=== PATIENT | female | born 1950 | race Caucasian/White ===

== ENCOUNTER → 2016-08-05 | Outpatient (CLI) | payer BC ==
[~2016-08-05] MED LIST: ASPI81TA28 PO; BRIM0.2S OPR; BROM0.07 OPR; CHOL20005 PO; CLOP1TAB15 PO; DOXY100C2 PO; ESCI1TAB10 PO; FAMC1TAB PO; FENO54TA3 PO; HYDR-5688 PO; INSDGIPEN SC; INSUINJ4 SQ; ISOS30TA51 PO; KRIL1000 PO; LISI-725 PO; METF-384 PO; METO1TAB69 PO; MULT-506 PO; NTRGSL/4 UT; OXYC1TAB3 PO; PRED1SUS3 OPR; ROSU40TA PO
[2016-08-05 12:44] LABS: ESTIMATED AVERAGE GLUCOSE 154 mg/dl; HA1C FLAG Normal (Normal)
[2016-08-05 13:24] LABS: ALT/SGPT 43 U/L (12-78); AST/SGOT 35 U/L (15-37); BLOOD UREA NITROGEN 17 mg/dl (7-18); BUN/CREATININE RATIO 20.7 (10-20); CALCIUM 9.1 mg/dl (8.5-10.1); CARBON DIOXIDE 25 mmol/L (21-32); CHLORIDE 107 mmol/L (98-107); CHOLESTEROL 139 mg/dl (0-200); CREATININE 0.83 mg/dl (0.60-1.20); GLUCOSE 127 mg/dl (70-99); POTASSIUM 4.8 mmol/L (3.5-5.1); SODIUM 142 mmol/L (136-145); TRIGLYCERIDES 199 mg/dl (0-150); VERY LOW DENSITY LIPOPROT CALC 40 mg/dl
[2016-08-05 13:39] LABS: ALB/GLOB RATIO 1.2 (0.9-2); ALKALINE PHOSPHATASE 49 U/L (45-117); CHOLESTEROL/HDL RATIO 3.1; HDL CHOLESTEROL 45 mg/dl; LDL CHOLESTEROL CALCULATED 54 mg/dl
== END | disposition home or self-care (01) ==
LOC: C.LABPVFM 08:04
PROVIDERS: ATTEND Family Medicine
DX: F32.9 Major depressive disorder, single episode, unspecified (principal); E78.5 Hyperlipidemia, unspecified; E11.29 Type 2 diabetes mellitus with other diabetic kidney complication; E55.9 Vitamin D deficiency, unspecified

== ENCOUNTER → 2016-08-06 | Outpatient (CLI) | payer BC ==
[2016-08-06 17:49] LABS: RATIO 38.1 mcg/mg (0-30.0)
== END | disposition home or self-care (01) ==
LOC: C.LABPVFM 14:33
PROVIDERS: ATTEND Family Medicine
DX: F32.9 Major depressive disorder, single episode, unspecified (principal); E78.5 Hyperlipidemia, unspecified; E11.29 Type 2 diabetes mellitus with other diabetic kidney complication; E55.9 Vitamin D deficiency, unspecified

== ENCOUNTER 2016-09-05 09:07 | Emergency (ER) | payer BC ==
[~2016-09-05] VITALS: Ht 157.5 cm; Wt 90.9 kg
[~2016-09-05 09:07] MED LIST changes: -DOXY100C2 PO; -HYDR-5688 PO; -INSDGIPEN SC; -OXYC1TAB3 PO
[2016-09-05 09:21] VITALS: TEMP 36.9; Ht 157.5 cm; Wt 90.9 kg
--- NOTE | 2016-09-05 10:06 | DIAGNOSTIC IMAGING REPORT ---
LEFT WRIST MIN 3 VIEWS ROUTINE CLINICAL HISTORY: Left wrist pain TRAUMA COMPARISON: None DISCUSSION: Irregularity of the navicular on the AP film, likely represents a projectional artifact. No acute fractures or dislocations are visualized on conventional radiographic imaging. IMPRESSION: No acute fractures or dislocations are visualized Electronically signed by: Grant Lozano M.D. 09/05/2016 10:04 AM Dictated Date/Time: 09/05/2016 10:02 AM
[2016-09-05] MEDS ORDERED: HYDR-5688 PO (10:35)
[2016-09-05 11:12] VITALS: BP 140/87; PULSE 72; O2SAT 98
--- NOTE | 2016-09-06 07:20 | EMERGENCY ROOM VISIT NOTE ---
ED Visit Note First contact with patient: 09:32 CHIEF COMPLAINT: Left wrist injury History of present illness: This 66-year-old white female patient complains of moderate constant wrist pain today after a fall last night. She tripped and fell forward, landing on pavers. The pain is worse with any movement of the wrist. No laceration, no numbness or weakness. No other injury. The fall was not associated with dizziness or fainting. There were no palpitations, no chest pain, no difficulty breathing, no headache, no lightheadedness or weakness. Pain is 7/10. Right-hand dominant. Her accompanies her today. REVIEW OF SYSTEMS: GENERAL: No fever or chills, easy fatigue, loss of appetite, or significant weight change. NEUROLOGICAL: No headache, change in mental status, weakness, numbness, or dizziness. PMH: Supplemental sheet was reviewed and signed. Previous surgeries: egd, cataracts x 2 Medical history: Diabetes, hypertension, elevated cholesterol, heart disease, previous [place] Current medications: Reviewed and filed in patient's chart Allergies: Penicillin Family history: Noncontributory. SOCIAL HISTORY: Patient lives at home. . No tobacco use, no EtOH use. PHYSICAL EXAM: Vital Signs: Afebrile. Reviewed and filed in patient's chart. General: Well-developed, well-nourished, middle-aged white female, in no acute distress. Obvious discomfort. She is sitting on a bed. MENTAL STATUS: Alert and oriented. Skin: Warm and dry with good turgor. No rashes or lesions. No ecchymosis or erythema. The patient is not diaphoretic. No abrasions. Moderate edema present at the wrist. Musculoskeletal: There is tenderness over the distal radius and anatomic snuffbox with moderate swelling. Range of motion is limited secondary to pain. No obvious deformity. No pain with palpation over the metacarpal heads or digits. There is intact motion of the digits, including opposition and circumduction of the thumb. This does generate pain at the base of the thumb. No pain with palpation over her forearm , radial head, or elbow. Neurologic: The hand is warm and well perfused and the fingers have normal sensation. Median, radial, and ulnar nerve functions are clearly intact. EMERGENCY DEPARTMENT COURSE: Radiographic images obtained today of the left wrist did not show any fracture as read by radiology. There is a questionable defect in the scaphoid by my interpretation. DIAGNOSIS: Left wrist sprain DISCHARGE INSTRUCTIONS & TREATMENT: The patient was educated regarding today's findings. Conservative care measures were discussed. She was placed in a Ortho- Glass thumb spica wrist splint. Wear the wrist splint at all times until seen by Dr. Pinedo. She will call on Wednesday for follow-up. Possibility of additional imaging was discussed with her. Ice and elevate the wrist intermittently to reduce pain and swelling. Ibuprofen, 600mg and Tylenol 1 g every 6 hours if needed for the pain. She was also given a prescription for Huntington 5 mg to be used for more severe pain. Driving precautions were given. Gentle finger motion daily. She was reassured that I do not suspect tendon injury at this time. Problem List Medical Problems: (1) Diabetes Status: Chronic Current/Historical Medications Scheduled Aspirin (Aspirin Ec), 81 MG PO QAM Cholecalciferol (Vitamin D3), 1 TAB PO QAM Clopidogrel (Plavix), 75 MG PO QAM Escitalopram Oxalate (Lexapro), 20 MG PO QAM Fenofibrate (Lofibra), 1 TAB PO QAM Insulin Glargine (Lantus Solostar Pen), 30 UNITS SQ HS Isosorbide Dinitrate (Isordil), 30 MG PO QAM Krill Oil (Krill Oil), 1 CAP PO QAM Lisinopril (Zestril), 20 MG PO QAM Metformin Hcl (Glucophage), 1,000 MG PO BID Metoprolol Succ (Toprol Xl) (Toprol-Xl ), 100 MG PO QAM Multivitamin (Multivitamin), 1 TAB PO QAM Rosuvastatin Calcium (Crestor), 40 MG PO QPM Scheduled PRN Famciclovir (Famciclovir), 1 TAB PO DIRECTED PRN for COLD SOARS Hydrocodone/Acetaminophen 5MG/325MG (Huntington 5MG/325MG), 1-2 TABLET PO Q6H PRN for Pain Nitroglycerin (Nitrostat), 0.4 MG UT PRN PRN for Chest Pain Allergies Coded Allergies: Penicillins (Verified Allergy, Severe, TONGUE SWELLING AND FELT LIKE THROAT WAS CLOSING, 09/05/16) Vital Signs Date Time Temp Pulse Resp B/P Pulse Ox O2 Delivery O2 Flow Rate FiO2 09/05/16 11:12 72 17 140/87 98 09/05/16 09:21 36.9 64 17 163/81 97 Room Air Departure Information Impression Primary Impression: Left wrist sprain Dispostion Home / Self-Care Condition GOOD Prescriptions Hydrocodone/Acetaminophen 5MG/325MG (Huntington 5MG/325MG) Tab 1-2 TABLET PO Q6H Y for Pain, #15 TAB For Initial Treatment Prov: Abel Hackett,P.A. 09/05/16 Forms CARE OF CASTS, WORK / SCHOOL INSTRUCTIONS, HOME CARE DOCUMENTATION FORM, SPECIAL NARCOTICS INSTRUCTIONS, TYLENOL USE, IMPORTANT VISIT INFORMATION Patient Instructions [facility] Additional Instructions Keep the splint on and dry at all times Call Dr. Pinedo on Wednesday for follow-up Ice and elevate frequently to reduce pain and swelling Tylenol every 6 hours as needed for mild discomfort Substitute Huntington 5 mg every 6 hour as needed for severe pain-no driving
--- NOTE | 2016-09-09 07:43 | EDITING REQUIRED CODING QUERY ---
CODING QUERY Lew MARTINEZ, To promote full compliance with coding requirements relating to patient care, provider participation is requested in all cases of network management specialist uncertainty. Please assist us with the question(s) below: Coding Question(s): One impression says "Right Wrist Sprain" and other impression says "Left Wrist Sprain." Please clarify laterality of wrist sprain below: ( ) Right Wrist Sprain (X) Left Wrist Sprain ( ) Other Please Explain: Physician's Response(s): Thank you Daryl Gonzalez Principal Diagnosis: "_that condition established after study, to be chiefly responsible for occasioning the admission of the patient to the hospital for care." Co-Existing Principal Diagnosis: "_when two or more diagnoses equally meet the criteria for principal diagnosis as determined by the circumstances of admission, diagnostic work up, and/or therapy provided, and the Alphabetic Index, Tabular List, or another coding guideline does not provide sequencing direction, any one of the diagnoses may be sequenced first." "When the physician has documented what appears to be a current diagnosis in the body of the record, but has not included the diagnosis in the final diagnostic statement, the physician should be asked whether the diagnosis should be added." (Source Coding [facility] 2 QTR90. p3-4)
== END 2016-09-05 11:12 | disposition home or self-care (01) ==
LOC: C.EDB 09:09 → C.EDC 11:12
DX: S63.502A Unspecified sprain of left wrist, initial encounter (principal); W18.39XA Other fall on same level, initial encounter; E11.9 Type 2 diabetes mellitus without complications; I10 Essential (primary) hypertension; E78.00 Pure hypercholesterolemia, unspecified; I25.2 Old myocardial infarction; Z98.49 Cataract extraction status, unspecified eye; Z98.890 Other specified postprocedural states; Z79.02 Long term (current) use of antithrombotics/antiplatelets; Z79.4 Long term (current) use of insulin; Z79.82 Long term (current) use of aspirin; Z79.84 Long term (current) use of oral hypoglycemic drugs; Z79.899 Other long term (current) drug therapy

== ENCOUNTER → 2016-11-17 | Outpatient (CLI) | payer BC ==
[~2016-11-17] MED LIST changes: -BRIM0.2S OPR; -BROM0.07 OPR; +DOXY100C2 PO; +HYDR-5688 PO; +INSDGIPEN SC; -ISOS30TA51 PO; +ISR/30 PO; +METO100T44 PO; -METO1TAB69 PO; +OXYC1TAB3 PO; -PRED1SUS3 OPR
--- NOTE | 2016-11-17 16:12 | DIAGNOSTIC IMAGING REPORT ---
KUB CLINICAL HISTORY: Left lower quadrant abdominal pain COMPARISON STUDY: No previous studies for comparison. FINDINGS: There is no pathologic bowel dilatation. There are no calcifications suspicious for renal calculi. There is a chronic deformity of the right lateral iliac bone. There are granular opacities located superior to the right iliac crest, as well as the left upper quadrant. These are nonspecific but possibly enteric. There are several nonspecific right pelvic basin calcifications. IMPRESSION: 1. No evidence of pathologic bowel dilatation 2. No renal calculi identified on conventional radiographic imaging Electronically signed by: Grant Lozano M.D. 11/17/2016 4:10 PM Dictated Date/Time: 11/17/2016 4:09 PM
== END | disposition home or self-care (01) ==
LOC: C.RADPV 15:53
PROVIDERS: ATTEND Family Medicine
DX: R10.9 Unspecified abdominal pain (principal)

== ENCOUNTER → 2016-12-10 | Outpatient (CLI) | payer BC ==
[~2016-12-10] MED LIST changes: +REGADENOSON 0.4 MG/5 ML SYR ONE
--- NOTE | 2016-12-10 22:55 | MYOCARDIAL PERFUSION SCAN ---
ORDERING PHYSICIAN: Dr. Arellano. PRIMARY CARE PHYSICIAN: Dr. Bo. TIME OF DICTATION: 15:41 p.m. PROCEDURE: 1. Myocardial perfusion study performed in multiple views/images. 2. Lexiscan pharmacologic stress ECG. INDICATIONS: 1. CAD. 2. Dyspnea with exertion. CONSENT: Informed written consent was obtained. DATE OF PROCEDURE: 12/10/2016. PROCEDURAL DETAILS: For the stress portion of the study, Lexiscan 0.4 mg was intravenously administered over 10-15 seconds followed by saline flush. This was followed with 33.6 mCi of technetium-99m Cardiolite injection intravenously at 11:15 a.m. on 12/10/2016. Thirty minutes following the injection, imaging of the heart was performed in multiple projections. For the rest portion of the study, 10.8 mCi of technetium-99m Cardiolite was injected intravenously at 9:30 a.m. on the same day. One hour following injection, imaging of the heart was performed in the same projections. LEXISCAN STRESS ECG: Baseline ECG demonstrated sinus bradycardia at 57 beats per minute. Lexiscan ECG demonstrated no significant ST changes. There was no arrhythmia. No significant pause. Lexiscan induced chest pain and shortness of breath were reported. Aminophylline 50 mg IV x1 was given and quickly relieved her symptoms. Maximum heart rate was 91 beats per minute representing 58% maximum predicted heart rate. Resting blood pressure was 137/63 mmHg, which is also the maximum blood pressure. The minimum blood pressure was 117/53 mmHg. FINDINGS: Rotating raw imaging demonstrated no significant lung uptake. There was minimal motion artifact. The heart size appeared normal. Myocardial perfusion appeared normal without significant reversible or fixed defect to suggest ischemia or infarct. Wall motion was normal. Ejection fraction was 58%. There was no significant transient ischemic dilation. IMPRESSION: 1. Normal myocardial perfusion without significant ischemia or infarction. 2. Normal left ventricular systolic function with an ejection fraction of 58%. 3. Normal wall motion. 4. Lexiscan induced chest pain and dyspnea. 5. Nondiagnostic Lexiscan ECG. Target heart rate not attained.
== END | disposition home or self-care (01) ==
LOC: C.NUCL 08:54
PROVIDERS: ATTEND Internal Medicine Cardiovascular Disease
DX: E78.5 Hyperlipidemia, unspecified (principal); I10 Essential (primary) hypertension; I25.10 Atherosclerotic heart disease of native coronary artery without angina pectoris; R00.2 Palpitations; R06.09 Other forms of dyspnea

== ENCOUNTER 2017-01-17 17:15 | Emergency (ER) | payer BC ==
[~2017-01-17] VITALS: Ht 160 cm; Wt 91.3 kg
[~2017-01-17 17:15] MED LIST changes: -DOXY100C2 PO; -INSDGIPEN SC; +ISOS30TA51 PO; -ISR/30 PO; -METO100T44 PO; +METO1TAB69 PO; -OXYC1TAB3 PO; -REGADENOSON 0.4 MG/5 ML SYR ONE
[2017-01-17 17:31] VITALS: TEMP 37.6; Ht 160 cm; Wt 91.3 kg
[2017-01-17] MEDS ORDERED: KETOROLAC TROMETHAMINE 30 MG/ML VIAL IV STA (17:51)
--- NOTE | 2017-01-17 17:58 | EMERGENCY ROOM VISIT NOTE ---
History Report prepared by Jesse: Carla Mcconnell Under the Supervision of: Dr. Pedrito Ledesma M.D. First contact with patient: 17:32 Chief Complaint: ARM PAIN Stated Complaint: LF ARM PAIN,EARLIER FINGERS/ARMS GOING NUMB Nursing Triage Summary: pt reports pain in left shoulder at 0400 this am. unable to move it. does not radiate. denies any n/v/sob History of Present Illness The patient is a 66 year old female who presents to the Emergency Room with complaints of constant left arm pain beginning 13 hours ago. The patient states that she began feeling pain in her left shoulder early this morning. She reports that she is not able to move her arm away from her body at all. She notes that she has a rash under the silicone of her right leg prothesis and has no known tick bites. She reports that the rash itches and frey and has spread since she got it. The patient states that her dog is positive for Lyme disease and [place]. She notes that a few years ago she had similar symptoms after picking something up but this time there was no injury that she can recall. She complains of finger and arm swelling and numbness beginning at the beginning of the week. She denies any nausea, vomiting , shortness of breath, chest pain, headache, fever, and chills. The patient reports that she was feeling fine yesterday and notes that she is right handed. She states that she is on Plavix and has a history of heart attack and diabetes. She reports that walking and movement worsens her arm pain. Source of History: patient Onset: 13 hours ago Position: arm (left) Timing: constant Modifying Factors (Worsening): movement Associated Symptoms: + numbness, No fevers, No chills, No headache, No chest pain, No SOB, No nausea, No vomiting Note: She complains of finger and arm swelling and numbness beginning at the beginning of the week. Review of Systems See HPI for pertinent positives & negatives. A total of 10 systems reviewed and were otherwise negative. Past Medical & Surgical Medical Problems: (1) Diabetes Old medical records were reviewed. Nurse's notes were reviewed and I agree with. Family History Diabetes mellitus Hypertension Social History Smoking Status: Never Smoker Alcohol Use: none Drug Use: none Marital Status: Housing Status: lives with family Occupation Status: retired Current/Historical Medications Scheduled Aspirin (Aspirin Ec), 81 MG PO QAM Cholecalciferol (Vitamin D3), 1 TAB PO QAM Clopidogrel (Plavix), 75 MG PO QAM Doxycycline Hyclate (Vibramycin), 100 MG PO BID Escitalopram Oxalate (Lexapro), 20 MG PO QAM Fenofibrate (Lofibra), 54 MG PO QPM Insulin Glargine (Lantus Solostar), 30 UNITS SC HS Isosorbide Dinitrate (Isordil), 30 MG PO QAM Krill Oil (Krill Oil), 1 CAP PO QAM Lisinopril (Zestril), 20 MG PO QAM Metformin Hcl (Glucophage), 1,000 MG PO BID Metoprolol Succ (Toprol Xl) (Toprol-Xl ), 100 MG PO QAM Multivitamin (Multivitamin), 1 TAB PO QAM Rosuvastatin Calcium (Crestor), 40 MG PO QPM Scheduled PRN Famciclovir (Famciclovir), 1 TAB PO DIRECTED PRN for COLD SOARS Hydrocodone/Acetaminophen 5MG/325MG ([place] 5MG/325MG), 1 TABLET PO Q6H PRN for Pain Nitroglycerin (Nitrostat), 0.4 MG UT PRN PRN for Chest Pain Oxycodone Immediate Rel Tab (Roxicodone Ir), 1 TAB PO Q6 PRN for Severe Pain Allergies Coded Allergies: Penicillins (Verified Allergy, Severe, TONGUE SWELLING AND FELT LIKE THROAT WAS CLOSING, 01/17/17) Physical Exam Vital Signs Date Time Temp Pulse Resp B/P (MAP) Pulse Ox O2 Delivery O2 Flow Rate FiO2 01/17/17 20:27 60 16 144/73 97 01/17/17 20:20 61 14 96 01/17/17 20:05 59 15 94 01/17/17 20:01 142/66 01/17/17 19:50 59 16 97 01/17/17 19:45 59 95 01/17/17 19:33 139/72 01/17/17 19:30 61 15 97 01/17/17 19:15 63 15 98 01/17/17 19:01 134/71 01/17/17 19:00 65 17 97 01/17/17 18:51 155/58 01/17/17 18:45 65 22 01/17/17 18:30 65 19 01/17/17 18:15 66 15 01/17/17 18:00 67 20 01/17/17 17:45 71 21 01/17/17 17:43 76 01/17/17 17:31 37.6 69 20 182/81 97 Room Air Physical Exam General: Well developed well nourished middle aged female in no acute distress, breathing comfortably on room air. Normal speech. She is holding her left arm close to her chest as it hurts with any movement of the shoulder HEENT: Normal cephalic atraumatic. Pupils are equal round and reactive to light. Extraocular movements are intact. Oropharynx is pink with moist mucous membranes. No swelling of the mouth lips or tongue. Neck: Supple with a midline trachea. No meningeal signs or stiffness, no JVD or bruits. No Stridor. Chest: Clear to auscultation bilaterally. No wheezes or rhonchi. No increased work of breathing. Heart: regular rate and rhythm. Abdomen: Soft nontender, nondistended without rebound guarding or rigidity. Extremities: No cyanosis clubbing or edema. No calf tenderness or assymetry Spine/Back. Non tender to palpation. No CVA tenderness Skin: Good turgor without rashes. There is no erythema migraines seen. There is a small rash on the right leg which appears non-cellulitic and is been her chronically. It may be more fungal. Neurologic exam: Cranial nerves two through 12 are intact. Motor and sensation are intact and symmetrical throughout. Left shoulder not red or warm it is moderately tender with palpation and movement, she has normal neurovascular status in the hand and wrist . Medical Decision & Procedures ER Provider Diagnostic Interpretation: X-ray results as stated below per interpretation by me and the radiologist: LEFT SHOULDER 3 VIEWS FINDINGS: 3 views of left shoulder are obtained. No prior studies are available for comparison at the time of dictation. The skeletal structures are osteopenic. No fracture or dislocation is seen. Mild productive degenerative change is seen at the acromioclavicular joint. The glenohumeral articulation is preserved. The overlying soft tissues are within normal limits. Imaged left lung parenchyma appears clear. IMPRESSION: No acute bony abnormality is seen in the left shoulder. Electronically signed by: Cali Hawkins M.D. 01/17/2017 6:45 PM Dictated Date/Time: 01/17/2017 6:44 PM SINGLE VIEW CHEST FINDINGS: An AP, portable, upright chest radiograph is compared to study dated 09/05/2013 and correlated with chest CT dated 08/05/2015. The examination is degraded by portable technique, large body habitus, and apical lordotic positioning. The heart is mildly enlarged. The pulmonary vasculature is noncongested. The lungs and pleural spaces are clear. No pneumothorax is seen. The skeletal structures are osteopenic. The bony thorax is grossly intact. Calcific tendinopathy is noted in the right shoulder. IMPRESSION: Mild cardiac enlargement with no active disease in the chest. Electronically signed by: Cali Hawkins M.D. 01/17/2017 6:46 PM Dictated Date/Time: 01/17/2017 6:45 PM Laboratory Results 01/17/17 18:14 Red Blood Count 4.37, Mean Corpuscular Volume 84.4, Mean Corpuscular Hemoglobin 27.0, Mean Corpuscular Hemoglobin Concent 32.0, Mean Platelet Volume 8.9, Neutrophils (%) (Auto) 59.5, Lymphocytes (%) (Auto) 25.5, Monocytes (%) (Auto) 11.4, Eosinophils (%) (Auto) 3.3, Basophils (%) (Auto) 0.2, Neutrophils # (Auto ) 4.90, Lymphocytes # (Auto) 2.10, Monocytes # (Auto) 0.94, Eosinophils # (Auto ) 0.27, Basophils # (Auto) 0.02 01/17/17 18:14 Test 01/17/17 18:14 White Blood Count 8.24 K/uL (4.8-10.8) Red Blood Count 4.37 M/uL (4.2-5.4) Hemoglobin 11.8 g/dL (12.0-16.0) Hematocrit 36.9 % (37-47) Mean Corpuscular Volume 84.4 fL (80-100) Mean Corpuscular Hemoglobin 27.0 pg (25-34) Mean Corpuscular Hemoglobin Concent 32.0 g/dl (32-36) Platelet Count 193 K/uL (130-400) Mean Platelet Volume 8.9 fL (7.4-10.4) Neutrophils (%) (Auto) 59.5 % Lymphocytes (%) (Auto) 25.5 % Monocytes (%) (Auto) 11.4 % Eosinophils (%) (Auto) 3.3 % Basophils (%) (Auto) 0.2 % Neutrophils # (Auto) 4.90 K/uL (1.4-6.5) Lymphocytes # (Auto) 2.10 K/uL (1.2-3.4) Monocytes # (Auto) 0.94 K/uL (0.11-0.59) Eosinophils # (Auto) 0.27 K/uL (0-0.5) Basophils # (Auto) 0.02 K/uL (0-0.2) RDW Standard Deviation 44.7 fL (36.4-46.3) RDW Coefficient of Variation 14.4 % (11.5-14.5) Immature Granulocyte % (Auto) 0.1 % Immature Granulocyte # (Auto) 0.01 K/uL (0.00-0.02) Erythrocyte Sedimentation Rate 8 mm/hr (0-21) Anion Gap 7.0 mmol/L (3-11) Est Creatinine Clear Calc Drug Dose 76.2 ml/min Estimated GFR () 90.3 Estimated GFR (Non- 77.9 BUN/Creatinine Ratio 14.7 (10-20) Calcium Level 8.7 mg/dl (8.5-10.1) Total Bilirubin 0.2 mg/dl (0.2-1) Direct Bilirubin < 0.1 mg/dl (0-0.2) Aspartate Amino Transf (AST/SGOT) 30 U/L (15-37) Alanine Aminotransferase (ALT/SGPT) 42 U/L (12-78) Alkaline Phosphatase 59 U/L (45-117) C-Reactive Protein 0.95 mg/dl (0-0.29) Total Protein 6.8 gm/dl (6.4-8.2) Albumin 3.5 gm/dl (3.4-5.0) Lipase 175 U/L (73-393) Lyme Disease IgG Antibody POS (NEG) Laboratory studies as stated above per my review. Medications Administered Medications (Trade) Dose Ordered Sig/Francisco Route Start Time Stop Time Status Last Admin Dose Admin Ketorolac Tromethamine (Toradol Inj) 30 mg NOW STAT IV 01/17/17 17:51 01/17/17 17:53 DC 01/17/17 18:19 30 MG Ondansetron HCl (Zofran Inj) 4 mg NOW STAT IV 01/17/17 19:12 01/17/17 19:13 DC 01/17/17 19:26 4 MG Morphine Sulfate (MoRPHine SULFATE INJ) 2 mg NOW STAT IV 01/17/17 19:12 01/17/17 19:13 DC 01/17/17 19:29 2 MG Doxycycline Hyclate (Vibramycin Cap) 100 mg ONE ONCE PO 01/17/17 20:00 01/17/17 20:01 DC 01/17/17 20:20 100 MG Oxycodone HCl (Roxicodone Immediate Rel 5MG Home Pack) 1 homepack UD ONCE PO 01/17/17 20:00 01/17/17 20:01 DC 01/17/17 20:20 1 HOMEPACK ECG Indication: other (arm pain) Rate (beats per minute): 72 Rhythm: normal sinus Findings: other (low voltage) Comparison ECG Date: 09/08/13 Change: T wave inversions are improved. ED Course 1731: Past medical records reviewed. The patient was evaluated in room B11, and a complete history and physical examination were performed. 1750: Toradol Inj 30mg IV. 1911: Morphine Sulfate 2mg IV, Zofran Inj 4mg IV. 1952: I reevaluated the patient and updated her. She is resting comfortably. 1999: Oxycodone HCl 1 homepack PO, Vibramycin Cap 100mg PO. 2018: Upon reevaluation, the patient is doing well. I discussed the results and treatment plan with the patient. She verbalized agreement of the treatment plan. The patient was discharged home. Medical Decision Differential diagnosis includes cardiac disease, infection, arthritis, Lyme disease, tendonitis, trauma. Medication Reconciliation: I attest that I have personally reviewed the patient' s current medication list. Blood pressure Screening: Patient was found to have an elevated blood pressure and was referred to their primary doctor for recheck and further treatment. This patient comes in with left shoulder pain and it is extremely reproducible. she has a difficult time moving the arm secondary to pain. She appears to be neurologically and neurovascularly Intact distally. The shoulder itself is not red or warm. She has a small rash on her right leg which has been going on for several weeks. It is does not appear cellulitic. It is not consistent with Lyme disease. IV access established was given Toradol x-ray and multiple blood tests was obtained her EKG does not suggest acute coronary syndrome or arrhythmia. Her symptoms would be very atypical for cardiac disease. Reactive enzymes are negative. Chest x-ray was unremarkable she has no acute electrode or metabolic abdomen legs her inflammatory markers are negative and she has no elevation of white count sedimentation rate or CRP. X-rays shoulder was unremarkable as is a chest x-ray. She was given Toradol and felt a little better she was given morphine 2 mg IV and Zofran 4 mg IV and felt significantly better. Her Lyme titer came back positive. This may be Lyme disease causing arthritis. She says her dogs are being treated for Lyme and she spends a lot of time outside. I will treat her with doxycycline 100 mg twice a day for 21 days the first dose was given here she was given a sling for comfort. She will use Tylenol/acetaminophen for pain but do not exceed the [id number] recommended dosages and no more than 2 pills every 6 hours and do not take with other medications contain acetaminophen. For breakthrough pain, she can use OxyIR 5 mg, 1 pill every 6 hours as needed. She was warned that it make her drowsy do not take before drinking, driving, working. She should follow up with her doctor next 1-2 days for recheck or return to ER if: Increasing pain, worsening symptoms, fever chills, any new problems or concerns. She was happy with plan and discharged to home. Impression Primary Impression: Lyme disease Additional Impression: Left shoulder pain Scribe Attestation The scribe's documentation has been prepared under my direction and personally reviewed by me in its entirety. I confirm that the note above accurately reflects all work, treatment, procedures, and medical decision making performed by me. Departure Information Dispostion Home / Self-Care Prescriptions Oxycodone Immediate Rel Tab (ROXICODONE IR) 5 Mg Tab 1 TAB PO Q6 Y for Severe Pain, #24 TAB Prov: Pedrito Ledesma M.D. 01/17/17 Doxycycline Hyclate (VIBRAMYCIN) 100 Mg Cap 100 MG PO BID for 21 Days, #42 CAP Prov: Pedrito Ledesma M.D. 01/17/17 Referrals Rafael Salazar M.D. (PCP) Forms HOME CARE DOCUMENTATION FORM, IMPORTANT VISIT INFORMATION Patient Instructions [facility] Additional Instructions Rest. Ice. Use sling. Use acetaminophen/Tylenol a maximum of 650 mg every 6 hours. Do not take with other medications that contain acetaminophen/Tylenol For more severe pain use OxyIR 5 mg, 1 pill every 4-6 hours as needed OxyIR may make you drowsy and do not take before drinking, driving, working and be careful getting up and down. Take a stool softener as needed Use doxycycline 100 mg twice a day for 21 days for Lyme disease. Doxycycline can make you sensitive in the sunlight and stay covered up and out of the sunlight. Return to the ER if: Increasing pain, redness or warmth, fever or chills, chest pain, shortness of breath, any new problems or concerns. Follow-up with your doctor in 1-2 days for recheck Problem Qualifiers
[2017-01-17] MEDS ORDERED: INSDGIPEN SC (18:03)
[2017-01-17] MEDS ORDERED: HYDR-5688 PO (18:03)
[2017-01-17 18:31] LABS: BASO % 0.2 %; BASO ABS # 0.02 K/uL (0-0.2); COMPLETE YES; EOS % 3.3 %; HEMATOCRIT 36.9 % (37-47); IG% 0.1 %; LYMPH % 25.5 %; MEAN CELL VOLUME 84.4 fL (80-100); MEAN PLATELET VOLUME 8.9 fL (7.4-10.4); MONO % 11.4 %; NEUT % 59.5 %; PLATELET COUNT 193 K/uL (130-400); RED BLOOD COUNT 4.37 M/uL (4.2-5.4); WHITE BLOOD COUNT 8.24 K/uL (4.8-10.8)
--- NOTE | 2017-01-17 18:46 | DIAGNOSTIC IMAGING REPORT ---
LEFT SHOULDER 3 VIEWS CLINICAL HISTORY: Left shoulder pain. FINDINGS: 3 views of left shoulder are obtained. No prior studies are available for comparison at the time of dictation. The skeletal structures are osteopenic. No fracture or dislocation is seen. Mild productive degenerative change is seen at the acromioclavicular joint. The glenohumeral articulation is preserved. The overlying soft tissues are within normal limits. Imaged left lung parenchyma appears clear. IMPRESSION: No acute bony abnormality is seen in the left shoulder. Electronically signed by: Cali Hawkins M.D. 01/17/2017 6:45 PM Dictated Date/Time: 01/17/2017 6:44 PM
--- NOTE | 2017-01-17 18:47 | DIAGNOSTIC IMAGING REPORT ---
SINGLE VIEW CHEST CLINICAL HISTORY: Atypical chest pain. FINDINGS: An AP, portable, upright chest radiograph is compared to study dated 09/05/2013 and correlated with chest CT dated 08/05/2015. The examination is degraded by portable technique, large body habitus, and apical lordotic positioning. The heart is mildly enlarged. The pulmonary vasculature is noncongested. The lungs and pleural spaces are clear. No pneumothorax is seen. The skeletal structures are osteopenic. The bony thorax is grossly intact. Calcific tendinopathy is noted in the right shoulder. IMPRESSION: Mild cardiac enlargement with no active disease in the chest. Electronically signed by: Cali Hawkins M.D. 01/17/2017 6:46 PM Dictated Date/Time: 01/17/2017 6:45 PM
[2017-01-17 18:48] LABS: ALT/SGPT 42 U/L (12-78); AST/SGOT 30 U/L (15-37); BLOOD UREA NITROGEN 12 mg/dl (7-18); BUN/CREATININE RATIO 14.7 (10-20); CALCIUM 8.7 mg/dl (8.5-10.1); CARBON DIOXIDE 25 mmol/L (21-32); CHLORIDE 107 mmol/L (98-107); GLUCOSE 206 mg/dl (70-99); SODIUM 139 mmol/L (136-145)
[2017-01-17 18:51] LABS: ALKALINE PHOSPHATASE 59 U/L (45-117); C-REACTIVE PROTEIN 0.95 mg/dl (0-0.29)
[2017-01-17] MEDS ORDERED: ONDANSETRON INJ 2 MG/ML 2 ML VIAL IV STA (19:12)
[2017-01-17] MEDS ORDERED: MoRPHine SULFATE 2 MG/ML CARP IV STA (19:12)
[2017-01-17 19:28] LABS: LYME DISEASE AB IGG POS (NEG)
[2017-01-17 19:29] LABS: LYME DISEASE AB IGM EQUIVOCAL (NEG)
[2017-01-17] MEDS ORDERED: DOXYCYCLINE HYCLATE 100 MG CAP PO ONE (20:00)
[2017-01-17] MEDS ORDERED: OXYCODONE IR HOME PACK PO ONE (20:00)
[2017-01-17] MEDS ORDERED: OXYC1TAB3 PO (20:02)
[2017-01-17] MEDS ORDERED: DOXY100C2 PO (20:02)
[2017-01-17 20:27] VITALS: BP 144/73; PULSE 60; O2SAT 97
[2017-01-21 15:39] LABS: 18KDIGG BAND NONREACTIVE (NONREACTIVE); 23KDIGG BAND REACTIVE (NONREACTIVE); 23KDIGM BAND REACTIVE (NONREACTIVE); 28KDIGG BAND NONREACTIVE (NONREACTIVE); 30KDIGG BAND NONREACTIVE (NONREACTIVE); 39KDIGG BAND NONREACTIVE (NONREACTIVE); 39KDIGM BAND NONREACTIVE (NONREACTIVE); 41KDIGG BAND REACTIVE (NONREACTIVE); 41KDIGM BAND NONREACTIVE (NONREACTIVE); 45KDIGG BAND NONREACTIVE (NONREACTIVE); 58KDIGG BAND REACTIVE (NONREACTIVE); 66KDIGG BAND NONREACTIVE (NONREACTIVE); 93KDIGG BAND NONREACTIVE (NONREACTIVE)
== END 2017-01-17 20:29 | disposition home or self-care (01) ==
LOC: C.EDB 17:18
DX: A69.20 Lyme disease, unspecified (principal); M25.512 Pain in left shoulder; R21 Rash and other nonspecific skin eruption; E11.9 Type 2 diabetes mellitus without complications; I25.2 Old myocardial infarction; Z97.13 Presence of artificial right leg (complete) (partial); Z79.01 Long term (current) use of anticoagulants; Z79.82 Long term (current) use of aspirin; Z79.4 Long term (current) use of insulin; Z79.84 Long term (current) use of oral hypoglycemic drugs; Z83.3 Family history of diabetes mellitus; Z82.49 Family history of ischemic heart disease and other diseases of the circulatory system

== ENCOUNTER → 2017-02-23 | Outpatient (CLI) | payer BC ==
[~2017-02-23] MED LIST changes: +DOXY100C2 PO; +INSDGIPEN SC; -INSUINJ4 SQ; +OXYC1TAB3 PO
[2017-02-23 13:01] LABS: ESTIMATED AVERAGE GLUCOSE 148 mg/dl; HA1C FLAG Normal (Normal)
[2017-02-23 13:12] LABS: RATIO 12.5 mcg/mg (0-30.0)
[2017-02-23 13:21] LABS: ALT/SGPT 52 U/L (12-78); BLOOD UREA NITROGEN 16 mg/dl (7-18); BUN/CREATININE RATIO 19.4 (10-20); CALCIUM 9.1 mg/dl (8.5-10.1); CARBON DIOXIDE 28 mmol/L (21-32); CHLORIDE 107 mmol/L (98-107); CHOLESTEROL 118 mg/dl (0-200); GLUCOSE 115 mg/dl (70-99); POTASSIUM 4.6 mmol/L (3.5-5.1); SODIUM 140 mmol/L (136-145)
[2017-02-23 13:24] LABS: ALB/GLOB RATIO 1.1 (0.9-2); ALKALINE PHOSPHATASE 45 U/L (45-117); AST/SGOT 44 U/L (15-37); HDL CHOLESTEROL 40 mg/dl; LDL CHOLESTEROL CALCULATED 36 mg/dl; TRIGLYCERIDES 211 mg/dl (0-150); VERY LOW DENSITY LIPOPROT CALC 42 mg/dl
--- NOTE | 2017-03-12 07:24 | CODING QUERY NO DIAGNOSIS ---
TREATMENT RENDERED WITHOUT A DIAGNOSIS : 1950 To promote full compliance with coding requirements relating to patient care, physician participation is requested in all cases of atmospheric chemist uncertainty. Please assist us with providing a diagnosis/symptom for the test(s) below: A diagnosis/symptom was not documented on your Order. A valid diagnosis/symptom is required to bill all insurances. Please remember that we are unable to code a diagnosis of rule out, probable, possible, questionable, or suspected. Tests that require a diagnosis: DOS: 02/23/17 * HEMOGLOBIN A1C DIAGNOSIS: * COMPREHENSIVE METABO DIAGNOSIS: * LIPID PROFILE FASTING DIAGNOSIS: * MICROALBUM/CREAT RAT DIAGNOSIS: Provider Signature: Date: Thank you Savanna Ferreira Health Information Management Once completed, please kindly fax back to [phone] For questions please call [phone]
== END | disposition home or self-care (01) ==
LOC: C.LABPVFM 07:44
PROVIDERS: ATTEND Family Medicine
DX: E11.9 Type 2 diabetes mellitus without complications (principal); E78.1 Pure hyperglyceridemia; E78.5 Hyperlipidemia, unspecified

== ENCOUNTER → 2017-04-05 | Outpatient (CLI) | payer BC | END | disposition home or self-care (01) | LOC: C.MAMM 13:43 | PROVIDERS: ATTEND Family Medicine | DX: Z13.820 Encounter for screening for osteoporosis (principal); M85.89 Other specified disorders of bone density and structure, multiple sites ==

== ENCOUNTER → 2017-07-14 | Outpatient (CLI) | payer BC ==
[~2017-07-14] MED LIST changes: -ISOS30TA51 PO; +ISR/30 PO; +METO100T44 PO; -METO1TAB69 PO; +OXYC-737 PO; -OXYC1TAB3 PO
--- NOTE | 2017-07-14 14:59 | MAMMOGRAPHY REPORT ---
BILATERAL DIGITAL SCREENING MAMMOGRAM TOMOSYNTHESIS WITH CAD: 07/14/2017 CLINICAL HISTORY: Routine screening. The patient has no current complaints. TECHNIQUE: Breast tomosynthesis in addition to standard 2D mammography was performed. Current study was also evaluated with a Computer Aided Detection (CAD) system. COMPARISON: Comparison is made to exams dated: 07/03/2016 mammogram, 07/16/2015 mammogram, 07/02/2015 mammogram, 06/29/2014 mammogram, 06/28/2013 mammogram, and 06/27/2012 mammogram - [facility]. BREAST COMPOSITION: There are scattered areas of fibroglandular density in both breasts. FINDINGS: No suspicious masses, calcifications, or areas of architectural distortion are noted in ei ther breast. There has been no significant interval change compared to prior exams. Scattered bilater al benign-appearing calcifications are again noted. IMPRESSION: ACR BI-RADS CATEGORY 2: BENIGN There is no mammographic evidence of malignancy. A 1 year screening mammogram is recommended. The pa tient will receive written notification of the results. Approximately 10% of breast cancers are not detected with mammography. A negative mammographic report should not delay biopsy if a clinically suggestive mass is present. Radha Lopez M.D. /:07/14/2017 09:55:57 Toeing Stockings: Adis HOLCOMB)(M), [facility] letter sent: Normal 1/2 BI-RADS Code: ACR BI-RADS Category 2: Benign
== END | disposition home or self-care (01) ==
LOC: C.MAMM 08:13
PROVIDERS: ATTEND Obstetrics & Gynecology
DX: Z12.31 Encounter for screening mammogram for malignant neoplasm of breast (principal)

== ENCOUNTER → 2017-07-21 | Outpatient (CLI) | payer BC ==
[~2017-07-21] MED LIST changes: -OXYC-737 PO
== END | disposition home or self-care (01) ==
LOC: C.LABPVFM 10:10
PROVIDERS: ATTEND Family Medicine
DX: N39.0 Urinary tract infection, site not specified (principal)

== ENCOUNTER 2024-02-15 17:50 | Observation (INO) ==
--- NOTE | 2024-02-15 18:39 | XRay Report ---
XR knee LT 1 or 2V routine, XR tibia fibula LT 2V, XR ankle LT min 3V routine CLINICAL HISTORY: l knee pain TECHNIQUE: 2 views of the left knee, 2 views of the left tibia and fibula, and 3 views of the left an kle were obtained. Comparison: None available at the time of this dictation. FINDINGS: There is no evidence of an acute fracture. Degenerative changes are seen most prominent in the medial compartment of the knee. No joint effusion is seen. Soft tissue swelling is seen most prominently ab out the ankle. IMPRESSION: Soft tissue swelling is most prominent about the ankle. ACT 112: Negative or not required by law. Electronically signed by: Srinivasa Ronquillo M.D. 02/15/2024 6:38 PM
[2024-02-15] MEDS: oxyCODONE HCL IR 5 MG TAB (IMMEDIATE RELEASE) PO STA (19:21)
--- NOTE | 2024-02-15 19:23 | Emergency Department Note ---
Impression & Plan Ambulatory dysfunction, Knee sprain, Acute ankle pain ED Provider Note NAME: ARAON BOGGS AGE: 74 SEX: F : 1950 ARRIVES VIA: Ambulance INFORMANT: Patient ED PROVIDER(S): Rodolfo Roblero DO CHIEF COMPLAINT: left leg pain HPI: Patient is a 74-year-old female who presents to the ER with a past medical history of diabetes, dyslipidemia, hypertension and CAD for pain in her left knee, hernandez, and ankle. She notes she tripped and caught herself. She did not fall but she twisted her left knee. When she moves that she feels significant amount of pain. She feels like she cannot otherwise movement. This all occurred earlier today prior to arrival. She notes last Wednesday she did fall and hurt her same knee. She denies any headache or change in vision. No chest pain or shortness of breath. No other exacerbating or remitting factors. ADDITIONAL HISTORY OBTAINED: Additional history obtained from daughter who was present at bedside who notes that patient has been having trouble walking due to the trauma to her left knee this past Wednesday. Chronic Medical/Social Conditions Affecting Care: Per HPI PAST MEDICAL HISTORY:See Below PAST SURGICAL HISTORY:See Below FAMILY HISTORY:See Below SOCIAL HISTORY:See Below HOME MEDICATIONS:See Below ALLERGIES:See Below VITALS:See Below PHYSICAL EXAMINATION: GENERAL: Sitting up in bed, alert, well appearing, well nourished, no distress, non-toxic EYE EXAM: normal conjunctiva. PERRL and EOM's grossly intact. OROPHARYNX: mucous membranes are moist LUNGS: Clear to auscultation. Normal chest wall mechanics HEART: no murmurs, S1 normal and S2 normal ABDOMEN: abdomen soft, non-tender, normo-active bowel sounds, no masses, no rebound or guarding. BACK: Back is symmetrical on inspection and there is no deformity, no midline tenderness, no CVA tenderness. UPPER EXTREMITIES: upper extremities are grossly normal. LOWER EXTREMITIES: No tenderness on palpation of left hip proximal or mid femur. Tenderness and swelling over the left knee held in flexion at 10 degrees. No tenderness throughout the tib-fib fib throughout the mid or distal portion. Significant other pain over the medial and lateral malleolus. Able to wiggle toes. Gross sensation intact. NEURO EXAM: Normal sensorium, cranial nerves II-XII grossly intact, normal speech, no gross weakness of arms, no gross weakness of legs. MEDICAL DECISION MAKING: Patient is a 72-year-old female who presents ER for above-stated complaint. IV was established blood work was obtained following the x-rays which showed no acute fracture of the knee tib-fib or ankle. Patient was unable to walk consequently was discussed with the hospitalist and a CBC and BMP was obtained. CBC shows no significant leukocytosis or anemia. BMP was unremarkable. Patient was given oxycodone initially. She was updated bedside discussed with case with the hospitalist for further evaluation management treatment. Consults/Care Managements Discussions: Per [facility] Triage Nursing notes reviewed. Limited review of prior medical records performed Vital Signs: reviewed and remarkable for HTN Differential diagnosis: Fracture, subluxation, dislocation, contusion, ligamentous injury, neurovascular, compartment syndrome, rhabdomyolysis, as well as other pathologies. ER treatment provided: See below Diagnostics interpreted by me include EKG and cardiac monitoring as listed below: -ECG: none -Laboratory studies:Interpreted by me as stated above in MDM and shown below. 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 Bilateral carpal tunnel syndrome CMC arthritis Type 2 diabetes mellitus with obesity Employs prosthetic leg Osteoporosis Obesity GERD (gastroesophageal reflux disease) Hypothyroidism Anxiety and depression Arthritis of carpometacarpal (CMC) joint of left thumb PVCs (premature ventricular contractions) Dyslipidemia Hypertension CAD (coronary artery disease) Meningioma, cerebral Medical History (Updated 02/15/24 @ 21:47 by Rodolfo Roblero DO) 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 ATTEMPTED FIRST FRACTURE REPAIR (HARDWARE) RT SIDE Osteoarthritis Myocardial Infarction 2013 Type 2 diabetes mellitus Surgical History S/P trigger finger release Lower extremity surgery planned History of esophagogastroduodenoscopy (EGD) History of colonoscopy Big Arm teeth removed History of cataract surgery Right below-knee amputee S/P coronary artery stent placement Family History Mother Family history of diabetes mellitus Myocardial infarction Grandmother (Paternal) Breast cancer Other Family history non-contributory No family history of adverse response to anesthesia Denies family history of Ovarian cancer Prostate cancer Colorectal cancer Social History Smoking Status: Never smoker Second Hand Exposure: Yes ( smokes outside ); Do You Dip or Chew Tobacco: No; Hx Alcohol Use: Yes (Very seldom ) Alcohol type: wine Hx Substance Use: No Preferred Language: Mozambican Visual Impairment: No Limitations Hearing Ability: Normal Transportation Security Screener Required: No Beliefs That Will Affect Care: None marital status: Current Living Situation: Family current occupational status: retired Feels Safe at Home: Yes Childhood Exposure to Second-Hand Smoke: Yes Dental Care, Regularly: No Physical Activity Frequency: 3-4 Times per Week Seatbelt Use: always Sunscreen Use: Yes Assistive Devices: Glasses and Prosthesis Allergies Allergies Allergy/AdvReac Type Severity Reaction Status Date / Time Penicillins Allergy Severe TONGUE Verified 02/15/24 19:13 SWELLING AND FELT LIKE THROAT WAS CLOSING lisinopril AdvReac Intermediate COUGHING Verified 02/15/24 19:13 lorazepam [From Ativan] AdvReac Intermediate INCREASED Verified 02/15/24 19:13 CRYING Home Meds Home Medications Medication Instructions Recorded Confirmed aspirin 81 mg tablet,delayed 81 mg PO QAM 12/10/18 02/15/24 release (Sushant Low Dose Aspirin) multivitamin 1 tab PO QAM 12/10/18 02/15/24 insulin degludec 200 unit/mL (3 30 unit subcut HS 03/18/23 02/15/24 mL) subcutaneous pen metformin 1,000 mg tablet 1,000 mg PO DAILY 09/21/23 02/15/24 alendronate 70 mg tablet (Fosamax) 70 mg PO WK 02/15/24 02/15/24 pantoprazole 20 mg tablet,delayed 20 mg PO Q OTHER DAY 02/15/24 02/15/24 release Previous Rx's Medication Instructions Recorded nitroglycerin 0.4 mg sublingual 0.4 mg sublingual DIRECTED #25 10/15/21 tablet tabs clopidogrel 75 mg tablet 75 mg PO DAILY #90 tabs 05/18/22 levothyroxine 50 mcg tablet 50 mcg PO QAM #90 tabs 05/18/22 famciclovir 500 mg tablet See Rx Instructions PO .COMPLEX 08/21/22 PRN Cold Sores #30 tabs rosuvastatin 20 mg tablet 20 mg PO DAILY #90 tabs 01/07/23 isosorbide mononitrate 60 mg 60 mg PO DAILY #90 tabs 03/16/23 tablet,extended release 24 hr metoprolol succinate 100 mg 100 mg PO DAILY #90 tabs 05/14/23 tablet,extended release 24 hr escitalopram oxalate 20 mg tablet 20 mg PO QAM #90 tabs 08/03/23 (Lexapro) cholecalciferol (vitamin D3) 50 50 mcg PO DAILY #90 caps 08/16/23 mcg (2,000 unit) capsule blood sugar diagnostic (OneTouch #200 ea 09/21/23 Ultra Test strips) olmesartan 5 mg tablet 5 mg PO DAILY #90 tabs 10/12/23 dulaglutide 0.75 mg/0.5 mL 0.75 mg (0.5 mL) subcut WK #2 mL 01/03/24 [facility] Results & Data (ED) Vital Signs Vital Signs - 24 hr 02/15/24 17:56 02/15/24 17:59 02/15/24 19:04 Temperature 36.6 C Temperature Source Temporal Artery Scan Pulse Rate 58 L Pulse Rate [Apical] 57 L 58 L Pulse Rhythm Respiratory Rate 16 15 17 Respiratory Effort / Characteristics Respiratory Depth Normal Normal Respiratory Pattern Blood Pressure 155/88 H Blood Pressure [Right Arm] 155/88 H Blood Pressure Mean 110 Blood Pressure Mean [Right Arm] 110 Pulse Oximetry 100 96 98 Oxygen Delivery Method Room Air Room Air Room Air Sepsis Recent Fever Within 48 Hours No Sepsis New/Unexplained Change in Mental Status No Sepsis Action Taken by Nursing No Action Required 02/15/24 21:00 02/15/24 21:00 Temperature Temperature Source Pulse Rate 56 L Pulse Rate [Apical] 56 L Pulse Rhythm Regular Respiratory Rate 18 18 Respiratory Effort / Characteristics Non-Labored Spontaneous Respiratory Depth Normal Respiratory Pattern Regular Blood Pressure Blood Pressure [Right Arm] 161/84 H Blood Pressure Mean Blood Pressure Mean [Right Arm] 109 Pulse Oximetry 95 95 Oxygen Delivery Method Room Air Room Air Sepsis Recent Fever Within 48 Hours Sepsis New/Unexplained Change in Mental Status Sepsis Action Taken by Nursing Laboratory Data 02/15/24 20:37 02/15/24 20:37 Lab Results 02/15/24 Range/Units 20:37 WBC 8.46 (4.8-10.8) K/ul RBC 4.53 (4.20-5.40) M/uL Hgb 13.4 (12.0-16.0) g/dl Hct 38.7 (37.0-47.0) % MCV 85.4 (80.0-100.0) fL MCH 29.6 (25.0-34.0) pg MCHC 34.6 (32.0-36.0) g/dL RDW Std Deviation 42.2 (36.4-46.3) fL RDW Coeff of Yashira 13.6 (11.5-14.5) % Plt Count 188 (130-400) K/uL MPV 9.1 L (9.4-12.4) fL Immature Gran % (Auto) 0.1 % Neut % (Auto) 52.6 % Lymph % (Auto) 35.0 % Castro % (Auto) 9.3 % Eos % (Auto) 2.6 % Baso % (Auto) 0.4 % Neut # (Auto) 4.45 (1.40-6.50) K/uL Lymph # (Auto) 2.96 (1.20-3.40) K/uL Castro # (Auto) 0.79 H (0.11-0.59) K/uL Eos # (Auto) 0.22 (0.00-0.50) K/uL Baso # (Auto) 0.03 (0.00-0.20) K/uL Immature Gran # (Auto) 0.01 (0.01-0.20) K/uL Sodium 138 (136-145) mmol/L Potassium 3.7 (3.5-5.1) mmol/L Chloride 105 (98-107) mmol/L Carbon Dioxide 24 (21-32) mmol/L Anion Gap 9 (3-11) BUN 12 (6-23) mg/dl Creatinine 0.79 (0.6-1.2) mg/dl Est Cr Clr Drug Dosing 61.0 ml/min Est GFR ( Amer) 86.7 ml/min Est GFR (Non-Af Amer) 74.8 ml/min BUN/Creatinine Ratio 15.2 (10-20) Glucose 77 (70-99(Fasting)) mg/dl Calcium 9.7 (8.6-10.3) mg/dl Administered Medications Discontinued Medications Oxycodone HCl (Oxycodone Hcl Ir 5 Mg Tab (Immediate Release)) 5 mg PO NOW STA Stop: 02/15/24 19:07 Last Admin: 02/15/24 19:21 Dose: 5 mg Documented By: [facility] Imaging Data Radiologist's Impression: Ankle X-Ray 02/15/24 18:08 XR knee LT 1 or 2V routine, XR tibia fibula LT 2V, XR ankle LT min 3V routine CLINICAL HISTORY: l knee pain TECHNIQUE: 2 views of the left knee, 2 views of the left tibia and fibula, and 3 views of the left ankle were obtained. Comparison: None available at the time of this dictation. FINDINGS: There is no evidence of an acute fracture. Degenerative changes are seen most prominent in the medial compartment of the knee. No joint effusion is seen. Soft tissue swelling is seen most prominently about the ankle. IMPRESSION: Soft tissue swelling is most prominent about the ankle. ACT 112: Negative or not required by law. Electronically signed by: Srinivasa Ronquillo M.D. 02/15/2024 6:38 PM Knee X-Ray 02/15/24 18:08 XR knee LT 1 or 2V routine, XR tibia fibula LT 2V, XR ankle LT min 3V routine CLINICAL HISTORY: l knee pain TECHNIQUE: 2 views of the left knee, 2 views of the left tibia and fibula, and 3 views of the left ankle were obtained. Comparison: None available at the time of this dictation. FINDINGS: There is no evidence of an acute fracture. Degenerative changes are seen most prominent in the medial compartment of the knee. No joint effusion is seen. Soft tissue swelling is seen most prominently about the ankle. IMPRESSION: Soft tissue swelling is most prominent about the ankle. ACT 112: Negative or not required by law. Electronically signed by: Srinivasa Ronquillo M.D. 02/15/2024 6:38 PM Tibia/Fibula X-Ray 02/15/24 18:08 XR knee LT 1 or 2V routine, XR tibia fibula LT 2V, XR ankle LT min 3V routine CLINICAL HISTORY: l knee pain TECHNIQUE: 2 views of the left knee, 2 views of the left tibia and fibula, and 3 views of the left ankle were obtained. Comparison: None available at the time of this dictation. FINDINGS: There is no evidence of an acute fracture. Degenerative changes are seen most prominent in the medial compartment of the knee. No joint effusion is seen. Soft tissue swelling is seen most prominently about the ankle. IMPRESSION: Soft tissue swelling is most prominent about the ankle. ACT 112: Negative or not required by law. Electronically signed by: Srinivasa Ronquillo M.D. 02/15/2024 6:38 PM Discharge Plan Visit Data Chief Complaint: Fall Stated Complaint: FALL ED Provider: Rodolfo Roblero Discharge Problem: Ambulatory dysfunction, Knee sprain, Acute ankle pain Patient Disposition: Home - Self-Care Discharge Instructions Krames/Other Patient Handouts: ED Knee Sprain, ED Ankle Sprain (Adult) Activity Restrictions/Additional Instructions: ORTHOPEDIC INSTRUCTIONS: Please follow up with orthopedics with in the next 48 hours. Any worsening of your symptoms, please return to the ED immediately. This includes any worsening pain, weakness or numbness, increased swelling, discoloration of your leg, or any other concerning signs or symptoms from your standpoint. You were given medications during this visit that will inhibit your ability to drive, operate machinery and work. Please do NOT drive, operate machinery, drink alcohol or work for the next 12hrs. You were found to have a blood pressure greater than 120 systolic over 90 diastolic. Due to the new Medicare guidelines, we are now recommending that you follow up with your primary care doctor in regards to this elevated blood pressure. Ice compresses for 20 minutes at a time four times daily for 2-3 days. Use the walker as instructed. Rest and elevate your injury. Please use the knee immobilizer throughout the day. Return to the ER immediately for any numbness, tingling, severe pain, extreme swelling in the extremity or as needed. Call [facility], [phone], tomorrow to arrange follow up for your injury. Call [facility], [phone], tomorrow to arrange follow up for your injury. Call [facility], [phone], tomorrow to arrange follow up for your injury. Follow-up with your primary care physician in 2 to 3 days for a recheck of your current condition. Forms Stand Alone Forms: My [facility], Important Visit Information Prescriptions Prescriptions: No Action famciclovir 500 mg tablet See Rx Instructions PO .COMPLEX PRN (Reason: Cold Sores) Qty: 30 0RF Rx Instructions: At first onset of cold sore: Take 1 tablet on day 1, then 1/2 tablet twice daily for 2 additional days isosorbide mononitrate 60 mg tablet extended release 24 hr 60 mg PO DAILY Qty: 90 3RF Patient Comments: TAKES QAM metoprolol succinate 100 mg tablet extended release 24 hr 100 mg PO DAILY Qty: 90 3RF Patient Comments: TAKES QAM escitalopram oxalate [Lexapro] 20 mg tablet 20 mg PO QAM Qty: 90 3RF cholecalciferol (vitamin D3) 50 mcg (2,000 unit) capsule 50 mcg PO DAILY Qty: 90 3RF Trulicity 0.75 mg/0.5 mL pen injector 0.75 mg subcut WK Qty: 2 3RF Rx Instructions: WEDNESDAY EVENINGS clopidogrel 75 mg tablet 75 mg PO DAILY Qty: 90 3RF Patient Comments: TAKES QAM levothyroxine 50 mcg tablet 50 mcg PO QAM Qty: 90 3RF metformin 1,000 mg tablet 1,000 mg PO DAILY (DME) OneTouch Ultra Test Strip See Rx Instructions .Route Qty: 200 3RF Rx Instructions: Check blood sugar twice daily nitroglycerin 0.4 mg tablet, sublingual 0.4 mg sublingual DIRECTED Qty: 25 5RF rosuvastatin 20 mg tablet 20 mg PO DAILY Qty: 90 3RF Patient Comments: TAKES HS olmesartan 5 mg tablet 5 mg PO DAILY Qty: 90 3RF multivitamin Tablet 1 tab PO QAM aspirin [Sushant Low Dose Aspirin] 81 mg Tablet,Delayed Release (Dr/Ec) 81 mg PO QAM insulin degludec 200 unit/mL (3 mL) insulin pen 30 unit SQ HS alendronate [Fosamax] 70 mg tablet 70 mg PO WK Rx Instructions: SUNDAYS pantoprazole 20 mg tablet,delayed release (DR/EC) 20 mg PO Q OTHER DAY Referrals Referrals: Trini Jiménez MD [Primary Care Provider] - Discharge Problem: Knee sprain Qualifiers: Encounter type: initial encounter Involved ligament of knee: unspecified ligament Laterality: left Qualified Code(s): S83.92XA - Sprain of unspecified site of left knee, initial encounter Acute ankle pain Qualifiers: Laterality: left Qualified Code(s): M25.572 - Pain in left ankle and joints of left foot
--- NOTE | 2024-02-15 20:45 | History & Physical Report ---
Date of Service February 15, 2024 Assessment & Plan (1) Knee sprain: Plan: Knee immobilizer. Orthopedics consulted to see the patient in the morning to see if further imaging of the extremity is warranted. (2) Acute ankle pain: Plan: As above orthopedics consulted. Await further input. Plan Assessment: 1. Left lower extremity knee/ankle sprain strain. Knee immobilizer. Orthopedics consulted. 2. 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 Patient lives w ith her who has advancing Parkinson's. She is not safe to go home at this point per ER. Consult case management. 3. Diabetes mellitus type 2 insulin requiring. Her Lantus has been ordered with ordered Accu-Cheks. Will continue sliding scale pending glycemic control. 4. Hypertension. 5. Dyslipidemia. 6. GERD. 7. Hypothyroidism. Plan: As discussed above. As needed Tylenol now. Bathroom services with assistance. Await orthopedics input. Pending their input PT and OT consultation. Case management consulted for discharge planning. Please refer to orders for further planning. History of Present Illness Chief Complaint: Left knee pain status post fall and near fall Primary Care Provider: Trini Jiménez MD This is a 74-year-old female who has a BKA on the right lower extremity. On Wednesday or Wednesday she is uncertain of what day exactly she fell onto her left side after tripping over her 2 dogs that came up behind her and they were fighting and the patient got tangled and fell on her left side. She had some left knee pain at that time. She wrapped it. Took anti-inflammatory medications and was getting around fairly well until today when the patient tripped over her 's shoes and the dog bed she had a near fall twisting to the left she did not fall the way to the ground but after she twisted she had severe knee pain on the left and ankle pain on the left. She came to the ER for further evaluation and treatment plain films by wet read are negative for fracture. She was placed in a left knee immobilizer and the patient cannot navigate and ambulate appropriately and get up and down appr opriately with her prosthetic right lower extremity and her immobilized left knee. Her has Parkinson's at home and does not able to help care for her with her current injury and debility. We are called admit the patient for further evaluation and treatment. Admitting the hospital we will get a consult orthopedics in the a.m. for further evaluation to see if MRI is warranted. We have consulted social research assistant for possible placement or services that may be needed in order for the patient to either get back home safely or get to a facility until she is able to safely get back home. Allergies Allergy/AdvReac Type Severity Reaction Status Date / Time Penicillins Allergy Severe TONGUE Verified 02/15/24 19:13 SWELLING AND FELT LIKE THROAT WAS CLOSING lisinopril AdvReac Intermediate COUGHING Verified 02/15/24 19:13 lorazepam [From Ativan] AdvReac Intermediate INCREASED Verified 02/15/24 19:13 CRYING Home Medications Medication Instructions Recorded Confirmed Type aspirin 81 mg tablet,delayed 81 mg PO QAM 12/10/18 02/15/24 History release (Sushant Low Dose Aspirin) multivitamin 1 tab PO QAM 12/10/18 02/15/24 History nitroglycerin 0.4 mg sublingual 0.4 mg sublingual DIRECTED #25 10/15/21 02/15/24 Rx tablet tabs clopidogrel 75 mg tablet 75 mg PO DAILY #90 tabs 05/18/22 02/15/24 Rx levothyroxine 50 mcg tablet 50 mcg PO QAM #90 tabs 05/18/22 02/15/24 Rx famciclovir 500 mg tablet See Rx Instructions PO .COMPLEX 08/21/22 02/15/24 Rx PRN Cold Sores #30 tabs rosuvastatin 20 mg tablet 20 mg PO DAILY #90 tabs 01/07/23 02/15/24 Rx isosorbide mononitrate 60 mg 60 mg PO DAILY #90 tabs 03/16/23 02/15/24 Rx tablet,extended release 24 hr insulin degludec 200 unit/mL (3 30 unit subcut HS 03/18/23 02/15/24 History mL) subcutaneous pen metoprolol succinate 100 mg 100 mg PO DAILY #90 tabs 05/14/23 02/15/24 Rx tablet,extended release 24 hr escitalopram oxalate 20 mg tablet 20 mg PO QAM #90 tabs 08/03/23 02/15/24 Rx (Lexapro) cholecalciferol (vitamin D3) 50 50 mcg PO DAILY #90 caps 08/16/23 02/15/24 Rx mcg (2,000 unit) capsule blood sugar diagnostic (OneTouch #200 ea 09/21/23 02/15/24 Rx Ultra Test strips) metformin 1,000 mg tablet 1,000 mg PO DAILY 09/21/23 02/15/24 History olmesartan 5 mg tablet 5 mg PO DAILY #90 tabs 10/12/23 02/15/24 Rx dulaglutide 0.75 mg/0.5 mL 0.75 mg (0.5 mL) subcut WK #2 mL 01/03/24 02/15/24 Rx subcutaneous pen injector (Trulicity) alendronate 70 mg tablet (Fosamax) 70 mg PO WK 02/15/24 02/15/24 History pantoprazole 20 mg tablet,delayed 20 mg PO Q OTHER DAY 02/15/24 02/15/24 History release Past Med/Surg History Problem List (Updated 02/15/24 @ 19:10 by Rodolfo Roblero DO) Acute ankle pain (Acute) Knee sprain (Acute) Type 2 diabetes, controlled, 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 Bilateral carpal tunnel syndrome CMC arthritis Type 2 diabetes mellitus with obesity Employs prosthetic leg Osteoporosis Obesity GERD (gastroesophageal reflux disease) Hypothyroidism Anxiety and depression Arthritis of carpometacarpal (CMC) joint of left thumb PVCs (premature ventricular contractions) Dyslipidemia Hypertension CAD (coronary artery disease) Meningioma, cerebral Medical History (Updated 02/15/24 @ 19:10 by Rodolfo Roblero DO) 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 ATTEMPTED FIRST FRACTURE REPAIR (HARDWARE) RT SIDE Osteoarthritis Myocardial Infarction 2013 Type 2 diabetes mellitus Surgical History S/P trigger finger release Lower extremity surgery planned History of esophagogastroduodenoscopy (EGD) History of colonoscopy [place] teeth removed History of cataract surgery Right below-knee amputee S/P coronary artery stent placement Family History Mother Family history of diabetes mellitus Myocardial infarction Grandmother (Paternal) Breast cancer Other Family history non-contributory No family history of adverse response to anesthesia Denies family history of Ovarian cancer Prostate cancer Colorectal cancer Social History Smoking Status: Never smoker Second Hand Exposure: Yes ( smokes outside ); Do You Dip or Chew Tobacco: No; Hx Alcohol Use: Yes (Very seldom ) Alcohol type: wine Hx Substance Use: No Preferred Language: Mauritanian Visual Impairment: No Limitations Hearing Ability: Normal Director Quality Assurance Required: No Beliefs That Will Affect Care: None marital status: Current Living Situation: Family current occupational status: retired Feels Safe at Home: Yes Childhood Exposure to Second-Hand Smoke: Yes Dental Care, Regularly: No Physical Activity Frequency: 3-4 Times per Week Seatbelt Use: always Sunscreen Use: Yes Assistive Devices: Glasses and Prosthesis Review of Systems Review of Systems: A 10 point review of system was obtained and unless otherwise stated here or in history of present illness are negative and noncontributory to chief complaint. Physical Exam Physical Exam: In General: In general is a 74-year-old female who is alert and oriented x 3 at the time of my exam she is accompanied by her daughter, examination. HEENT: Normocephalic atraumatic pupils are equal round and reactive to light bilaterally. No scleral icterus no conjunctival injection external auditory canals are patent septum is in the midline nose is without discharge oral mucosa is pink and moist without lesion. NECK: Supple no rigidity no lymphadenopathy no thyromegaly no carotid bruits no JVD no masses. HEART: Regular rate and rhythm I do not appreciate any ectopy or rub. No murmur. LUNGS: Clear to auscultation bilaterally and anteriorly with no evidence of adventitious sounds/wheezes rales or rhonchi. ABDOMEN: Soft nontender, no rebound, no peritoneal signs, positive bowel sounds, no appreciable organomegaly. EXTREMITIES: BKA with prosthetic limb noted on the right. Left lower extremity is in a knee immobilizer. She has got pain in her knee joint as well as the ankle joint with some mild soft tissue swelling of the left ankle. Good peripheral pulses in the left lower extremity. NEUROLOGICAL: Cranial nerves II through XII are grossly intact with no focal deficit elicited upon examination. Results & Data Results & Data Vital Signs (Past 12 Hours) Vital Signs Temp Pulse Pulse Resp BP BP Pulse Ox 02/15/24 19:04 58 L 17 155/88 H 98 02/15/24 17:59 57 L 15 96 02/15/24 17:56 36.6 C 58 L 16 155/88 H 100 O2 Del Method 02/15/24 19:04 Room Air 02/15/24 17:59 Room Air 02/15/24 17:56 Room Air Code Status & VTE Plan Code Status CODE STATUS: I personally discussed with patient PG Care Time/CCT Total # of Minutes Spent Total Time Spent with Patient: Total time spent is greater than 50% in coordination of care (as documented) at patient's floor/unit and/or counseling patient: Coding Level of Care Code 41374 INT INP/OBS CARE 2/55MIN Diagnoses Knee sprain S83.92XA Encounter type: initial encounter Involved ligament of knee: unspecified ligament Laterality: left Acute ankle pain M25.572 Laterality: left (1) Knee sprain Encounter type: initial encounter Involved ligament of knee: unspecified ligament Laterality: left Qualified Code(s): S83.92XA - Sprain of unspecified site of left knee, initial encounter (2) Acute ankle pain Laterality: left Qualified Code(s): M25.572 - Pain in left ankle and joints of left foot
[2024-02-15 20:48] LABS: Basophils # (auto) 0.03 K/uL (0.00-0.20); Basophils % (auto) 0.4 %; Eosinophils # (auto) 0.22 K/uL (0.00-0.50); Eosinophils % (auto) 2.6 %; Hematocrit (blood only) 38.7 % (37.0-47.0); Hemoglobin 13.4 g/dl (12.0-16.0); Immature Granulocytes # (auto) 0.01 K/uL (0.01-0.20); Immature Granulocytes % (auto) 0.1 %; Lymphocytes # (auto) 2.96 K/uL (1.20-3.40); Mean Corpuscular Hemoglobin 29.6 pg (25.0-34.0); Mean Corpuscular Hgb Conc 34.6 g/dL (32.0-36.0); Mean Corpuscular Volume 85.4 fL (80.0-100.0); Mean Platelet Volume 9.1 fL (9.4-12.4); Monocytes # (auto) 0.79 K/uL (0.11-0.59); Monocytes % (auto) 9.3 %; Neutrophils # (auto) 4.45 K/uL (1.40-6.50); Neutrophils % (auto) 52.6 %; Platelet Count 188 K/uL (130-400); RDW Coefficient of Variation 13.6 % (11.5-14.5); RDW Standard Deviation 42.2 fL (36.4-46.3); Red Blood Count 4.53 M/uL (4.20-5.40); White Blood Count 8.46 K/ul (4.8-10.8)
[2024-02-15 21:04] LABS: BUN Creatinine Ratio 15.2 (10-20); Calcium 9.7 mg/dl (8.6-10.3); Est GFR (African American) 86.7 ml/min; Est GFR (Non-African American) 74.8 ml/min; Potassium 3.7 mmol/L (3.5-5.1)
[2024-02-15] MEDS ORDERED: GLUCOSE 40% GEL 15 GM TUBE PO PRN (23:45)
[2024-02-15] MEDS ORDERED: DEXTROSE 50% 50 ML SYRINGE IV PRN (23:45)
[2024-02-15] MEDS ORDERED: GLUCOSE 10 TAB/TUBE PO PRN (23:45)
[2024-02-15] MEDS ORDERED: CARBOHYDRATES FOR HYPOGLYCEMIA PO PRN (23:45)
[2024-02-15] MEDS ORDERED: GLUCAGON FOR INJ 1 MG VIAL IM PRN (23:45)
[2024-02-15] MEDS: LANTUS PER UNIT CHARGE SC SCH (23:54)
[2024-02-15] MEDS: ACETAMINOPHEN 1,000 MG/100 ML VIAL IV STA (23:54)
[2024-02-16] MEDS: LEVOTHYROXINE SODIUM 50 MCG TABLET PO SCH (05:50)
[2024-02-16] MEDS: CLOPIDOGREL BISULFATE 75 MG TAB PO SCH (08:21)
[2024-02-16] MEDS: ESCITALOPRAM OXALATE 20 MG TAB PO SCH (08:21)
[2024-02-16] MEDS: ISOSORBIDE MONO EXTENDED REL 60 MG TABCR PO SCH (08:21)
[2024-02-16] MEDS: ASPIRIN 81 MG ECTAB PO SCH (08:21)
[2024-02-16] MEDS: METOPROLOL SUCC 50MG EXT REL TAB PO SCH (08:22)
[2024-02-16] MEDS: LOSARTAN POTASSIUM 25 MG TAB PO SCH (08:22)
[2024-02-16] MEDS: PANTOprazole 40 MG TAB PO SCH (08:22)
[2024-02-16] MEDS: MULTIVITAMIN TAB PO SCH (08:22)
[2024-02-16] MEDS: metFORMIN HCL 500 MG TAB PO SCH (08:22)
[2024-02-16] MEDS: ROSUVASTATIN CALCIUM 20 MG TAB PO SCH (08:23)
[2024-02-16] MEDS ORDERED: ACETAMINOPHEN 325 MG TAB PO PRN (11:53)
[2024-02-16] MEDS: ACETAMINOPHEN 325 MG TAB PO PRN (12:11)
--- NOTE | 2024-02-16 12:33 | Orthopedic Consultation ---
Date of Consultation February 16, 2024 Assessment & Plan (1) Left ankle sprain: Elevate ice Tylenol. Ankle air stirrup brace. Weight-bear as tolerated with walker. (2) Left knee pain: I do not think that she needs any advanced imaging. Given the recent trauma I do not think that a aspiration corticosteroid injection is necessarily immediately in order. Structurally the knee is intact. She does have some arthritis. She may have sprained the knee or aggravated the arthritis. There is the remote possibility of an occult fracture. Weight-bear as tolerated with walker and knee immobilizer. Elevate ice Tylenol. She would benefit from PT and OT. She can follow-up as an outpatient with either Dr. Pinedo or myself. (3) Arthritis of left knee: History of Present Illness Attending Physician: Fermin Ramirez History of Present Illness Martín is 74 years old. She has a right below-knee amputation secondary to a congenital pseudoarthrosis of the tibia. About 1 week ago she fell landing on her left knee area. She had left knee pain at that time but was able to continue to ambulate. Yesterday she tripped and twisted her left leg and had increased left knee pain as well as left ankle pain. She could not ambulate and came to the emergency room. She was admitted to the hospital. There is no prior history of left leg injuries. Allergies Allergy/AdvReac Type Severity Reaction Status Date / Time Penicillins Allergy Severe TONGUE Verified 02/15/24 19:13 SWELLING AND FELT LIKE THROAT WAS CLOSING lisinopril AdvReac Intermediate COUGHING Verified 02/15/24 19:13 lorazepam [From Ativan] AdvReac Intermediate INCREASED Verified 02/15/24 19:13 CRYING Home Medications Medication Instructions Recorded Confirmed Type aspirin 81 mg tablet,delayed 81 mg PO QAM 12/10/18 02/15/24 History release (Sushant Low Dose Aspirin) multivitamin 1 tab PO QAM 12/10/18 02/15/24 History nitroglycerin 0.4 mg sublingual 0.4 mg sublingual DIRECTED #25 10/15/21 02/15/24 Rx tablet tabs clopidogrel 75 mg tablet 75 mg PO DAILY #90 tabs 05/18/22 02/15/24 Rx levothyroxine 50 mcg tablet 50 mcg PO QAM #90 tabs 05/18/22 02/15/24 Rx famciclovir 500 mg tablet See Rx Instructions PO .COMPLEX 08/21/22 02/15/24 Rx PRN Cold Sores #30 tabs rosuvastatin 20 mg tablet 20 mg PO DAILY #90 tabs 01/07/23 02/15/24 Rx isosorbide mononitrate 60 mg 60 mg PO DAILY #90 tabs 03/16/23 02/15/24 Rx tablet,extended release 24 hr insulin degludec 200 unit/mL (3 30 unit subcut HS 03/18/23 02/15/24 History mL) subcutaneous pen metoprolol succinate 100 mg 100 mg PO DAILY #90 tabs 05/14/23 02/15/24 Rx tablet,extended release 24 hr escitalopram oxalate 20 mg tablet 20 mg PO QAM #90 tabs 08/03/23 02/15/24 Rx (Lexapro) cholecalciferol (vitamin D3) 50 50 mcg PO DAILY #90 caps 08/16/23 02/15/24 Rx mcg (2,000 unit) capsule blood sugar diagnostic (OneTouch #200 ea 09/21/23 02/15/24 Rx Ultra Test strips) metformin 1,000 mg tablet 1,000 mg PO DAILY 09/21/23 02/15/24 History olmesartan 5 mg tablet 5 mg PO DAILY #90 tabs 10/12/23 02/15/24 Rx dulaglutide 0.75 mg/0.5 mL 0.75 mg (0.5 mL) subcut WK #2 mL 01/03/24 02/15/24 Rx subcutaneous pen injector (Trulicity) alendronate 70 mg tablet (Fosamax) 70 mg PO WK 02/15/24 02/15/24 History pantoprazole 20 mg tablet,delayed 20 mg PO Q OTHER DAY 02/15/24 02/15/24 History release Patient History Medical History (Updated 02/16/24 @ 12:35 by Andrea Weems MD) 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 ATTEMPTED FIRST FRACTURE REPAIR (HARDWARE) RT SIDE Osteoarthritis Myocardial Infarction 2013 Type 2 diabetes mellitus Surgical History S/P trigger finger release Lower extremity surgery planned History of esophagogastroduodenoscopy (EGD) History of colonoscopy [place] teeth removed History of cataract surgery Right below-knee amputee S/P coronary artery stent placement Family History Mother Family history of diabetes mellitus Myocardial infarction Grandmother (Paternal) Breast cancer Other Family history non-contributory No family history of adverse response to anesthesia Denies family history of Ovarian cancer Prostate cancer Colorectal cancer Social History Smoking Status: Never smoker Second Hand Exposure: Yes ( smokes outside ); Do You Dip or Chew Tobacco: No; Hx Alcohol Use: Yes Alcohol type: wine Hx Substance Use: No Preferred Language: Montenegrin Communication Ability: Effective Visual Impairment: No Limitations Hearing Ability: Normal Laundry Aide Required: No Beliefs That Will Affect Care: None marital status: Current Living Situation: Spouse current occupational status: retired Other Information That Helps Us Care for You: No Feels Safe at Home: Yes Safety Concerns: Feels Safe At This Time Childhood Exposure to Second-Hand Smoke: Yes Dental Care, Regularly: No Physical Activity Frequency: 3-4 Times per Week Seatbelt Use: always Sunscreen Use: Yes Assistive Devices: None Physical Exam Physical Exam: She is able to stand but has positive limp and significant pain with ambulating. The pain involves her left knee area. Left DP and PT pulses are trace palpable. She has 5 out of 5 ankle and toe plantarflexion dorsiflexion inversion eversion knee flexion and extension strength. There is no bruising of the left ankle but appears to have some anterolateral ankle swelling. The Achilles and tibialis anterior are intact. There is full movement of the ankle and subtalar joints. There is tenderness to palpation over the left distal fibula and the inferior and anterior ligamentous complexes. Ankle drawer is negative. Sensation intact. She is able to do an active straight leg raise. Her extensor mechanism is intact. Her knee is stable to varus and valgus stress at 0 degrees and she has trace LCL laxity at 20 degrees of knee flexion. Peter negative. Posterior drawer is intact at maximum flexion which is about 60 degrees. Left knee range of motion is 0-60 limited by posteromedial knee pain. There is a small to moderate left knee effusion. She does not have any induration or erythema. Logrolling is negative. There is tenderness over the posterior medial aspect of the knee around the joint line area. She has intact knee flexion and extension strength. Results & Data Vital Signs (Past 12 Hours) Vital Signs Temp Pulse Resp BP Pulse Ox O2 Del Method 02/16/24 07:39 36.8 C 63 16 130/62 94 Room Air Diagnostic Findings Radiographs of the left knee AP and lateral, left tib-fib AP and lateral and 3 v iews of the left ankle all done at [facility] reviewed. The reports are noted. There is no acute fractures or dislocations noted. Soft tissue swelling about the left ankle. There is an effusion in the left knee but no evidence of fracture. She does have some medial compartment joint space narrowing consistent with arthritis.
--- NOTE | 2024-02-16 13:58 | Hospitalist Progress Note ---
Date of Service February 16, 2024 Assessment & Plan (1) Knee sprain: Plan: Patient presented to ED on 02/14 following a fall on her left side with left knee/ankle pain. She was admitted fur evaluation by ortho, PT, and OT -Reviewed left tib/fib, ankle, and knee x-rays 02/14: Soft tissue swelling is most prominent about the ankle. -Orthopedics consult reviewed -no advanced imaging needed -weight bear as tolerated with walker -elevate, ice, tylenol prn -follow up outpatient -due to severe pain, tramadol added prn -await PT/OT consult in AM (2) Acute ankle pain: Plan: As above orthopedics consulted. Await further input. Plan Chronic conditions: Type 2 Diabetes: Lantus, Metformin GERD: PPI Hypothyroidism: Synthroid hyperlipidemia: rosuvastatin HTN: Losartan, metoprolol CAD: Plavix, isosorbide mononitrate Mental health: Lexapro Diet: Type 2, heart healthy Code status: full code DVT Prophylaxis: SCD's Disposition: continue inpatient stay awaiting PT/OT eval Admission and Anticipated Discharge Date Admission Date: February 15, 2024 Subjective Patient seen and examined this afternoon. Patient complaining of 8/10 left leg pain. Denies any additional complaints. Physical Exam 2 Constitutional: WD/WN, vitals as above Eyes: PERRL, conjunctivae normal, anicteric sclerae Respiratory: normal respiratory effort, lungs clear to auscultation Cardiovascular: RRR, no murmur, no edema Musculoskeletal: left knee/ankle without erythema or edema Skin: no rashes, warm and dry Results & Data Results & Data Vital Signs (Past 12 Hours) Vital Signs Temp Pulse Resp BP Pulse Ox O2 Del Method 02/16/24 07:39 36.8 C 63 16 130/62 94 Room Air Laboratory Results 02/15/24 20:37 02/15/24 20:37 Diagnostic Findings Ankle X-Ray 02/15/24 18:08 XR knee LT 1 or 2V routine, XR tibia fibula LT 2V, XR ankle LT min 3V routine CLINICAL HISTORY: l knee pain TECHNIQUE: 2 views of the left knee, 2 views of the left tibia and fibula, and 3 views of the left ankle were obtained. Comparison: None available at the time of this dictation. FINDINGS: There is no evidence of an acute fracture. Degenerative changes are seen most prominent in the medial compartment of the knee. No joint effusion is seen. Soft tissue swelling is seen most prominently about the ankle. IMPRESSION: Soft tissue swelling is most prominent about the ankle. ACT 112: Negative or not required by law. Electronically signed by: Srinivasa Ronquillo M.D. 02/15/2024 6:38 PM Knee X-Ray 02/15/24 18:08 XR knee LT 1 or 2V routine, XR tibia fibula LT 2V, XR ankle LT min 3V routine CLINICAL HISTORY: l knee pain TECHNIQUE: 2 views of the left knee, 2 views of the left tibia and fibula, and 3 views of the left ankle were obtained. Comparison: None available at the time of this dictation. FINDINGS: There is no evidence of an acute fracture. Degenerative changes are seen most prominent in the medial compartment of the knee. No joint effusion is seen. Soft tissue swelling is seen most prominently about the ankle. IMPRESSION: Soft tissue swelling is most prominent about the ankle. ACT 112: Negative or not required by law. Electronically signed by: Srinivasa Ronquillo M.D. 02/15/2024 6:38 PM Tibia/Fibula X-Ray 02/15/24 18:08 XR knee LT 1 or 2V routine, XR tibia fibula LT 2V, XR ankle LT min 3V routine CLINICAL HISTORY: l knee pain TECHNIQUE: 2 views of the left knee, 2 views of the left tibia and fibula, and 3 views of the left ankle were obtained. Comparison: None available at the time of this dictation. FINDINGS: There is no evidence of an acute fracture. Degenerative changes are seen most prominent in the medial compartment of the knee. No joint effusion is seen. Soft tissue swelling is seen most prominently about the ankle. IMPRESSION: Soft tissue swelling is most prominent about the ankle. ACT 112: Negative or not required by law. Electronically signed by: Srinivasa Ronquillo M.D. 02/15/2024 6:38 PM PG Care Time/CCT Total # of Minutes Spent Total Time Spent with Patient: Total time spent is greater than 50% in coordination of care (as documented) at patient's floor/unit and/or counseling patient: Coding Level of Care Code 60695 SUB INP/OBS CARE 2/35MIN Diagnoses Knee sprain S83.92XA Encounter type: initial encounter Involved ligament of knee: unspecified ligament Laterality: left Acute ankle pain M25.572 Laterality: left (1) Knee sprain Encounter type: initial encounter Involved ligament of knee: unspecified ligament Laterality: left Qualified Code(s): S83.92XA - Sprain of unspecified site of left knee, initial encounter (2) Acute ankle pain Laterality: left Qualified Code(s): M25.572 - Pain in left ankle and joints of left foot
[2024-02-16] MEDS: traMADol HCL 50 MG TABLET PO PRN (14:17)
[2024-02-17 07:16] VITALS: RESP 16; TEMP 97.7; O2SAT 98
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
[2024-02-17 12:55] VITALS: BP 130/62; PULSE 54
== END 2024-02-17 15:20 | disposition home or self-care (01) ==
LOC: ED 17:50 → 3W 17:50 → SUATTDRO 21:49 → 3W 22:22